=== PATIENT | female | born 1965 | race Caucasian/White ===

== ENCOUNTER → 2017-10-23 | Outpatient (CLI) | payer OTHER ==
--- NOTE | 2017-10-23 12:31 | MR ---
EXAMINATION TYPE: MR cervical spine wo con DATE OF EXAM: 10/23/2017 11:32 AM COMPARISON: NONE HISTORY: Cervicalgia / Radiculopathy Multiplanar MultiSpin echo imaging of the cervical spine was performed. Comparison: none C2-C3: No evidence for degenerative disc disease. No disc bulge/herniation or protrusion. No Canal stenosis. Foramina are patent bilaterally. C3-C4: No evidence for degenerative disc disease. No disc bulge/herniation or protrusion. No Canal stenosis. Foramina are patent bilaterally. C4-C5: Mild disc desiccation compatible with degenerative disc disease. Mild posterocentral disc bulg e. No herniation protrusion or central stenosis. Foramina are patent bilaterally. C5-C6: Moderate disc desiccation noted. Circumferential disc bulge greatest posteriorly. Effacement o f the ventral thecal sac without cord contact. There is grade 1 retrolisthesis of C5 on C6 measuring 2.3 mm. This is likely on the basis of degenerative change of the cervical apophyseal joints. Degener ative endplate marrow changes are noted. Ventral spondylosis is identified. Foramina are patent. C6-C7: No evidence for degenerative disc disease. No disc bulge/herniation or protrusion. No Canal stenosis. Foramina are patent bilaterally. C7-T1: No evidence for degenerative disc disease. No disc bulge/herniation or protrusion. No Canal stenosis. Foramina are patent bilaterally. Cervical segments are intact. There is normal alignment. Cervical spinal cord is of normal signal. Craniovertebral junction relationships are within normal limits. IMPRESSION: 1. Degenerative disc disease as discussed. 2. Disc bulging at C4-5 and C5-6 greatest at C5-6 as noted. 2. Grade 1 retrolisthesis of C5 on C6 .
== END | disposition home or self-care (01) ==
LOC: RADMRIMAIN 10:53
PROVIDERS: ATTEND Family Medicine
DX: M50.121 Cervical disc disorder at C4-C5 level with radiculopathy (principal); M43.12 Spondylolisthesis, cervical region
CPT/HCPCS: 72141

== ENCOUNTER → 2017-12-24 | Outpatient (CLI) | payer OTHER | END | disposition home or self-care (01) | LOC: RADFLMAIN 12:48 | PROVIDERS: ATTEND Physical Medicine & Rehabilitation | DX: Z53.9 Procedure and treatment not carried out, unspecified reason (principal) ==

== ENCOUNTER → 2018-05-31 | Outpatient (CLI) | payer OTHER ==
--- NOTE | 2018-05-31 16:15 | XR ---
EXAMINATION TYPE: XR finger LT DATE OF EXAM: 05/31/2018 COMPARISON: Left hand x-ray October 22, 2014. HISTORY: Pain first digit left hand. TECHNIQUE: 2 views of left first finger are acquired. FINDINGS: Seen best on frontal projection there is advanced joint space loss with peripheral osteophy melissa and adjacent soft tissue bony formation with progression from 2015 radiograph at base of first me tacarpal. Mild spurring and joint space loss first interphalangeal joint is redemonstrated. No acute fracture or dislocation is seen. IMPRESSION: As above.
--- NOTE | 2018-05-31 16:16 | XR ---
EXAMINATION TYPE: XR lumbar spine 2 or 3V DATE OF EXAM: 05/31/2018 CLINICAL HISTORY: Chronic increasing low back pain. TECHNIQUE: Frontal and lateral images of the lumbar spine are obtained. COMPARISON: None FINDINGS: There are 5 lumbar type vertebral bodies identified. The lumbar spine shows satisfactory alignment without evidence of acute fracture or dislocation. Vertebral body heights and disk space he ights are within normal limits. Mild anterior spurring from superior L3 endplate is present. Mild vas cular calcification overlying abdominal aorta is seen. IMPRESSION: As above.
== END | disposition home or self-care (01) ==
LOC: RADXRYALE 15:53
PROVIDERS: ATTEND Nurse Practitioner Family
DX: M77.8 Other enthesopathies, not elsewhere classified (principal); M25.742 Osteophyte, left hand
CPT/HCPCS: 72100

== ENCOUNTER → 2018-06-19 | Outpatient (CLI) | payer OTHER ==
--- NOTE | 2018-06-19 22:54 | CT ---
EXAMINATION TYPE: CT lumbar spine wo con DATE OF EXAM: 06/19/2018 COMPARISON: None HISTORY: 52-year-old female lumbar radiculitis, Lower back pain TECHNIQUE: Contiguous axial scanning of the lumbar spine without IV contrast. Coronal and sagittal re constructions performed. CT DLP: 1011.79 mGycm Automated exposure control for dose reduction was used. FINDINGS: There is mild right-sided pelviectasis and mild right-sided hydroureter. This should be correlated wi th any symptoms of renal colic. There is some irregular soft tissue thickening in the region of the cecum near the ileocecal valve, r efer to coronal image 10. Patient be further evaluated with colonoscopy. Vertebral body heights are preserved. Trace grade 1 retrolisthesis L2-L3. Mild bulging discs from L2 through L5 levels. No large focal disc herniation identified by CT. Facet arthropathy lower lumbar spine with bilateral L5 pars defects. No appreciable spinal canal stenosis. On the left, bulging discs result in mild narrowing of the neuroforamen at L2-L3, L3-L4, L4-L5. On the right, there is mild narrowing seen at L3-L4, L4-L5, and L5-S1. No high-grade foraminal compro mise identified. IMPRESSION: 1. MILD MULTILEVEL DEGENERATIVE DISC DISEASE. THERE IS GRADE 1 RETROLISTHESIS AT L2/L3 LIKELY ON A DE GENERATIVE BASIS. 2. BILATERAL L5 PARS DEFECTS. MILD BILATERAL NEURAL FORAMINAL NARROWING IN THE MID TO LOWER LUMBAR SP INE. NO HIGH-GRADE FORAMINAL COMPROMISE. 3. NO VERTEBRAL COMPRESSION COLLAPSE. 4. SOME IRREGULAR SOFT TISSUE THICKENING WITHIN THE CECUM NEAR THE ILEOCECAL VALVE. THIS MAY RELATE T O WALL REDUNDANCY. CORRELATE WITH COLONOSCOPY TO EXCLUDE UNDERLYING NEOPLASM. 5. MILD RIGHT-SIDED HYDROURETER AND PELVIECTASIS MAY BE TRANSIENT. CORRELATE FOR ANY RIGHT-SIDED WENDI L COLIC AND POSSIBILITY OF A DISTAL URETERAL OBSTRUCTION.
--- NOTE | 2018-06-19 22:58 | CT ---
EXAMINATION TYPE: CT pelvis w con DATE OF EXAM: 06/19/2018 COMPARISON: NONE HISTORY: 52-year-old female Lower back and LLQ pain TECHNIQUE: Contiguous axial scanning of the pelvis following administration of 100 ml Isovue 300 IV c ontrast. Delayed images through the bladder and coronal/sagittal reconstructions performed. CT DLP: 605.65 mGycm Automated exposure control for dose reduction was used. FINDINGS: Bladder urine distended. Mild right-sided pelviectasis and a mild right-sided hydroureter without any distal obstructing lesion identified. This may be transient. Bladder is urine distended. Uterus and ovaries are visualized. Prominent left-sided periuterine varic es and distended left gonadal vein. Some soft tissue thickening in the cecum near the level of the ileocecal valve, refer to coronal imag e 30 and recommendations made on the patient's lumbar spine CT. No abnormal fluid collection in the pelvis or pelvic lymphadenopathy. IMPRESSION: 1. LEFT-SIDED PARAUTERINE VARICES AND A DISTENDED LEFT GONADAL VEIN. NONSPECIFIC FINDINGS THAT CAN BE SEEN IN THE SETTING OF PELVIC CONGESTION SYNDROME. 2. IN REGARDS TO THE RIGHT KIDNEY AND CECUM, REFER TO CT LUMBAR SPINE REPORT. OF NOTE, NO DISTAL URET ERAL CALCULUS IS SEEN ON THE ON THIS EXAM. FINDINGS INVOLVING THE RIGHT KIDNEY AND URETER MAY BE RAMIREZ SIENT.
== END ==
LOC: RADCTMAIN 16:13
PROVIDERS: ATTEND Family Medicine
DX: M99.73 Connective tissue and disc stenosis of intervertebral foramina of lumbar region (principal); M43.16 Spondylolisthesis, lumbar region; M51.16 Intervertebral disc disorders with radiculopathy, lumbar region; I86.2 Pelvic varices
CPT/HCPCS: 72193; 72131; Q9967

== ENCOUNTER 2018-07-22 10:31 | Observation (INO) | payer OTHER ==
--- NOTE | 2018-07-22 11:14 | XR ---
EXAMINATION TYPE: XR chest 2V DATE OF EXAM: 07/22/2018 COMPARISON: NONE HISTORY: Chest pain and shortness of breath since this morning TECHNIQUE: Frontal and lateral views of the chest are obtained. FINDINGS: There is no focal air space opacity, pleural effusion, or pneumothorax seen. The cardiac silhouette size is within normal limits. The osseous structures are intact. IMPRESSION: No acute cardiopulmonary process.
[2018-07-22 11:20] LABS: Prothrombin Time 9.7 sec (9.0-12.0)
[2018-07-22 11:21] LABS: ALT 19 U/L (9-52); AST 21 U/L (14-36); Albumin 3.5 g/dL (3.5-5.0); Alkaline Phosphatase 56 U/L (38-126); Anion Gap 6 mmol/L; Blood Urea Nitrogen 17 mg/dL (7-17); Calcium 9.2 mg/dL (8.4-10.2); Carbon Dioxide 24 mmol/L (22-30); Chloride 111 mmol/L (98-107); Glucose 109 mg/dL (74-99); Magnesium 2.2 mg/dL (1.6-2.3); Potassium 4.4 mmol/L (3.5-5.1); Sodium 141 mmol/L (137-145); Total Bilirubin 0.8 mg/dL (0.2-1.3); Total Protein 6.8 g/dL (6.3-8.2)
[2018-07-22 11:26] LABS: Basophils # (A) 0.1 k/uL (0-0.2); Basophils % (A) 1 %; Creatine Kinase 31 U/L (30-135); Eosinophils # (A) 0.2 k/uL (0-0.7); Eosinophils % (A) 2 %; HCT 41.3 % (34.0-46.0); HGB 13.8 gm/dL (11.4-16.0); Lymphocytes # (A) 2.1 k/uL (1.0-4.8); Lymphocytes % (A) 19 %; MCH 30.8 pg (25.0-35.0); MCHC 33.4 g/dL (31.0-37.0); Mean Platelet Volume 6.5; Monocytes # (A) 0.6 k/uL (0-1.0); Monocytes % (A) 5 %; Neutrophils # (A) 7.9 k/uL (1.3-7.7); Neutrophils % (A) 72 %; Platelet Count 307 k/uL (150-450); RBC 4.49 m/uL (3.80-5.40); RDW 12.8 % (11.5-15.5); WBC 10.9 k/uL (3.8-10.6)
--- NOTE | 2018-07-22 11:29 | ED ---
General Adult HPI - General Chief complaint: Chest Pain Stated complaint: Chest Pain Source: patient, EMS Mode of arrival: EMS Limitations: no limitations - History of Present Illness Initial comments: Dictation was produced using [employer] dictation software. please excuse any grammatical, word or spelling errors. Chief Complaint: 82-year-old female past medical history of cancer, GERD, osteoporosis presents with chest tightness and pleuritic chest pain. History of Present Illness: She's been having symptoms since last night. She states her symptoms felt as though she was having tightness in her chest. Denies any relation to the neck or shoulders. No associated diaphoresis. Patient denies any history of cardiac disease. She does state that she does have some pleuritic chest symptoms to her bilateral lower chest. She states that her pain is worse with deep inspiration. Patient is a current smoker. Patient has any cough. Denies any constitutional symptoms. Denies any history of DVTs or PEs. Family history of thrombotic embolic disease. EMS performed 3 EKGs. There is concern of some ST elevations however they did not report any ST depressions or other reciprocal changes. The ROS documented in this emergency department record has been reviewed and confirmed by me. Those systems with pertinent positive or negative responses have been documented in the HPI. All other systems are other negative and/or noncontributory. - Related Data Home Medications Medication Instructions Recorded Confirmed Acetaminophen Tab [Tylenol Tab] 1,000 mg PO Q6HR PRN 07/22/18 07/22/18 Aspirin 324 mg PO DAILY PRN 07/22/18 07/22/18 Allergies Allergy/AdvReac Type Severity Reaction Status Date / Time No Known Allergies Allergy Verified 07/22/18 11:19 Review of Systems ROS Statement: Those systems with pertinent positive or pertinent negative responses have been documented in the HPI. ROS Other: All systems not noted in ROS Statement are negative. Past Medical History Past Medical History: Cancer, GERD/Reflux, Osteoarthritis (OA) Additional Past Medical History / Comment(s): HX SKIN CANCER, BACK PAIN, STATES IRREGULAR HEART BEAT., STATES CURRENT COUGH AND CHEST CONGESTION- WILL BE FOLLOWING UP WITH HER DR Sultana AND DR CARRILLO'S OFFICE ., STATES CT SCAN DONE FOR BACK PAIN WHICH SHOWED "SWOLLEN INTESTINES". History of Any Multi-Drug Resistant Organisms: None Reported Past Surgical History: Tubal Ligation Additional Past Surgical History / Comment(s): CYST ON HAND, NOSE FX SURGERY., COLONOSCOPY. Past Anesthesia/Blood Transfusion Reactions: Motion Sickness, Postoperative Nausea & Vomiting (PONV) Past Psychological History: Depression Smoking Status: Current every day smoker Past Alcohol Use History: Occasional Past Drug Use History: Marijuana - Past Family History Mother Family Medical History: No Reported History General Exam - General Exam Comments Initial Comments: PHYSICAL EXAM: General Impression: Alert and oriented x3, not in acute distress HEENT: Normocephalic atraumatic, extra-ocular movements intact, pupils equal and reactive to light bilaterally, mucous membranes moist. Cardiovascular: Heart regular rate and rhythm, S1&S2 audible, no murmurs, rubs or gallops Chest: Lungs clear to auscultation bilaterally, no rhonchi, no wheeze, no rales Abdomen: Bowel sounds present, abdomen soft, non-tender, non-distended, no organomegaly Musculoskeletal: Pulses present and equal in all extremities, no peripheral edema Motor: Power 5/5 bilaterally, no focal deficits noted Neurological: CN II-XII grossly intact, no focal motor or sensory deficits noted Skin: Intact with no visualized rashes Psych: Normal affect and mood Limitations: no limitations Course Vital Signs 07/22/18 07/22/18 10:33 10:51 Temperature 98.4 F Pulse Rate 76 Respiratory 18 18 Rate Blood Pressure 115/79 O2 Sat by Pulse 99 Oximetry Medical Decision Making - Medical Decision Making ED course: 52-year-old female with multiple comorbidities presents with atypical chest pain with typical features. Patient appears well at this time. As upon arrival are within acceptable limits. His examination is benign.Return evaluation obtained. Leukocytosis of 10.9 likely secondary to stress. Coag panel unremarkable. Metabolic panel is unremarkable. Cardiac enzymes are negative. Chest x-ray shows no acute processes. Patient be admitted to observation for so troponins. Patient reports having had a stress test however spend several years. Patient has any history of DVTs. Denies any lower extremity symptoms. - Lab Data Result diagrams: 07/22/18 10:46 07/22/18 10:46 Lab Results 07/22/18 07/22/18 07/22/18 Range/Units 10:46 10:46 10:46 WBC 10.9 H (3.8-10.6) k/uL RBC 4.49 (3.80-5.40) m/uL Hgb 13.8 (11.4-16.0) gm/dL Hct 41.3 (34.0-46.0) % MCV 92.0 (80.0-100.0) fL MCH 30.8 (25.0-35.0) pg MCHC 33.4 (31.0-37.0) g/dL RDW 12.8 (11.5-15.5) % Plt Count 307 (150-450) k/uL Neutrophils % 72 % Lymphocytes % 19 % Monocytes % 5 % Eosinophils % 2 % Basophils % 1 % Neutrophils # 7.9 H (1.3-7.7) k/uL Lymphocytes # 2.1 (1.0-4.8) k/uL Monocytes # 0.6 (0-1.0) k/uL Eosinophils # 0.2 (0-0.7) k/uL Basophils # 0.1 (0-0.2) k/uL PT (9.0-12.0) sec INR (<1.2) APTT (22.0-30.0) sec Sodium 141 (137-145) mmol/L Potassium 4.4 (3.5-5.1) mmol/L Chloride 111 H (98-107) mmol/L Carbon Dioxide 24 (22-30) mmol/L Anion Gap 6 mmol/L BUN 17 (7-17) mg/dL Creatinine 0.61 (0.52-1.04) mg/dL Est GFR (CKD-EPI)AfAm >90 (>60 ml/min/1.73 sqM) Est GFR (CKD-EPI)NonAf >90 (>60 ml/min/1.73 sqM) Glucose 109 H (74-99) mg/dL Calcium 9.2 (8.4-10.2) mg/dL Magnesium 2.2 (1.6-2.3) mg/dL Total Bilirubin 0.8 (0.2-1.3) mg/dL AST 21 (14-36) U/L ALT 19 (9-52) U/L Alkaline Phosphatase 56 (38-126) U/L Total Creatine Kinase 31 (30-135) U/L CK-MB (CK-2) 0.3 (0.0-2.4) ng/mL CK-MB (CK-2) Rel Index 1.0 Troponin I <0.012 (0.000-0.034) ng/mL Total Protein 6.8 (6.3-8.2) g/dL Albumin 3.5 (3.5-5.0) g/dL 07/22/18 Range/Units 10:46 WBC (3.8-10.6) k/uL RBC (3.80-5.40) m/uL Hgb (11.4-16.0) gm/dL Hct (34.0-46.0) % MCV (80.0-100.0) fL MCH (25.0-35.0) pg MCHC (31.0-37.0) g/dL RDW (11.5-15.5) % Plt Count (150-450) k/uL Neutrophils % % Lymphocytes % % Monocytes % % Eosinophils % % Basophils % % Neutrophils # (1.3-7.7) k/uL Lymphocytes # (1.0-4.8) k/uL Monocytes # (0-1.0) k/uL Eosinophils # (0-0.7) k/uL Basophils # (0-0.2) k/uL PT 9.7 (9.0-12.0) sec INR 1.0 (<1.2) APTT 23.0 (22.0-30.0) sec Sodium (137-145) mmol/L Potassium (3.5-5.1) mmol/L Chloride (98-107) mmol/L Carbon Dioxide (22-30) mmol/L Anion Gap mmol/L BUN (7-17) mg/dL Creatinine (0.52-1.04) mg/dL Est GFR (CKD-EPI)AfAm (>60 ml/min/1.73 sqM) Est GFR (CKD-EPI)NonAf (>60 ml/min/1.73 sqM) Glucose (74-99) mg/dL Calcium (8.4-10.2) mg/dL Magnesium (1.6-2.3) mg/dL Total Bilirubin (0.2-1.3) mg/dL AST (14-36) U/L ALT (9-52) U/L Alkaline Phosphatase (38-126) U/L Total Creatine Kinase (30-135) U/L CK-MB (CK-2) (0.0-2.4) ng/mL CK-MB (CK-2) Rel Index Troponin I (0.000-0.034) ng/mL Total Protein (6.3-8.2) g/dL Albumin (3.5-5.0) g/dL Disposition Clinical Impression: Chest pain Disposition: ADMITTED IP TO THIS [facility] Condition: Good Referrals: Estela Storm DO [Primary Care Provider] - 1-2 days Decision Time: 12:52
[2018-07-22 11:37] LABS: Creatine Kinase MB 0.3 ng/mL (0.0-2.4); Troponin I <0.012 ng/mL (0.000-0.034)
[2018-07-22] MEDS ORDERED: ASPIRIN 81 MG PO STA (12:52)
[2018-07-22] MEDS ORDERED: NITROGLYCERIN SL TABS 0.4 MG TAB SUBLINGUAL PRN (12:52)
--- NOTE | 2018-07-22 17:09 | P.HPIM ---
History of Present Illness 52-year-old pleasant female chronic smoker came in with complaints of her chest tightness and dull pain severe started yesterday while she was eating has to stop eating constant which is mild and now mild improvement with the sublingual nitroglycerin denied any radiation of chest pain patient chest pain does get worse with deep breathing doesn't have pneumonia on the chest x-ray d-dimer will be obtained to denied any cough denied any diaphoresis nausea lightheadedness, shortness of breath possible history of premature coronary artery disease in father patient has seen by PCP who sent her here because of mild ST elevations which are insignificant. Troponins are negative we'll obtain a d-dimer. Patient was comparing of palpitations as well Review of Systems REVIEW OF SYSTEMS: CONSTITUTIONAL: No fever, no malaise, no fatigue. HEENT: No recent visual problems or hearing problems. Denied any sore throat. CARDIOVASCULAR: No orthopnea, PND, no syncope. PULMONARY: No shortness of breath, no cough, no hemoptysis. GASTROINTESTINAL: No diarrhea, no nausea, no vomiting, no abdominal pain. Normoactive bowel sounds. NEUROLOGICAL: No headaches, no weakness, no numbness. HEMATOLOGICAL: Denies any bleeding or petechiae. GENITOURINARY: Denies any burning micturition, frequency, or urgency. MUSCULOSKELETAL/RHEUMATOLOGICAL: Denies any joint pain, swelling, or any muscle pain. ENDOCRINE: Denies any polyuria or polydipsia. The rest of the 14-point review of systems is negative. Past Medical History Past Medical History: Cancer, GERD/Reflux, Osteoarthritis (OA) Additional Past Medical History / Comment(s): HX SKIN CANCER, BACK PAIN, STATES IRREGULAR HEART BEAT., STATES CURRENT COUGH AND CHEST CONGESTION- WILL BE FOLLOWING UP WITH HER DR Sultana AND DR CARRILLO'S OFFICE ., STATES CT SCAN DONE FOR BACK PAIN WHICH SHOWED "SWOLLEN INTESTINES" to have a colonosocpy.pt stated"i passed out about a month ago they were leaning on it being associated with migraines" History of Any Multi-Drug Resistant Organisms: None Reported Past Surgical History: Tubal Ligation Additional Past Surgical History / Comment(s): CYST ON lt HAND, NOSE FX SURGERY. , COLONOSCOPY/benign polys removed. Past Anesthesia/Blood Transfusion Reactions: Motion Sickness, Postoperative Nausea & Vomiting (PONV) Additional Past Anesthesia/Blood Transfusion Reaction / Comment(s): never has had a blood transfusion Smoking Status: Current every day smoker - Past Family History Mother Family Medical History: Diabetes Mellitus, Osteoarthritis (OA) Additional Family Medical History / Comment(s): irreg heart beat ,osteoporosis, Father Family Medical History: Coronary Artery Disease (CAD) Additional Family Medical History / Comment(s): heart issues Medications and Allergies Home Medications Medication Instructions Recorded Confirmed Type Acetaminophen Tab [Tylenol Tab] 1,000 mg PO Q6HR PRN 07/22/18 07/22/18 History Aspirin 324 mg PO DAILY PRN 07/22/18 07/22/18 History Allergies Allergy/AdvReac Type Severity Reaction Status Date / Time No Known Allergies Allergy Verified 07/22/18 11:19 Physical Exam Vitals: Vital Signs Temp Pulse Pulse Resp BP BP Pulse Ox 07/22/18 15:20 97.8 F 63 18 106/71 99 07/22/18 15:00 69 18 108/74 97 07/22/18 14:40 69 18 108/74 98 07/22/18 14:20 66 18 111/78 97 07/22/18 13:34 76 18 118/79 96 07/22/18 13:32 72 13 118/79 98 07/22/18 10:51 18 07/22/18 10:33 98.4 F 76 18 115/79 99 Intake and Output 07/22/18 07/22/18 07/22/18 06:59 14:59 22:59 Other: Weight 63.957 kg 63 kg PHYSICAL EXAMINATION: GENERAL: The patient is alert and oriented x3, not in any acute distress. Well developed, well nourished. HEENT: Pupils are round and equally reacting to light. EOMI. No scleral icterus. No conjunctival pallor. Normocephalic, atraumatic. No pharyngeal erythema. No thyromegaly. CARDIOVASCULAR: S1 and S2 present. No murmurs, rubs, or gallops. PULMONARY: Chest is clear to auscultation, no wheezing or crackles. ABDOMEN: Soft, nontender, nondistended, normoactive bowel sounds. No palpable organomegaly. MUSCULOSKELETAL: No joint swelling or deformity. EXTREMITIES: No cyanosis, clubbing, or pedal edema. NEUROLOGICAL: Gross neurological examination did not reveal any focal deficits. SKIN: No rashes. Results CBC & Chem 7: 07/22/18 10:46 07/22/18 10:46 Labs: Abnormal Lab Results - Last 24 Hours (Table) 07/22/18 07/22/18 Range/Units 10:46 10:46 WBC 10.9 H (3.8-10.6) k/uL Neutrophils # 7.9 H (1.3-7.7) k/uL Chloride 111 H (98-107) mmol/L Glucose 109 H (74-99) mg/dL Assessment and Plan Plan: -Chest pain: Mostly atypical in nature because of the pleuritic a competent of chest pain will obtain a d-dimer if it's positive will obtain a CT to rule out pulmonary embolism. The other possibility being gastroesophageal reflux disease patient will be started on Protonix cardiology will evaluate the patient rule out: Acute coronary syndromes. -Nicotine use: Counseling was provided patient used to smoke 2 packs per day now smoking about one pack per day trying to cut it down -History of gastroesophageal reflux disease -Depression/panic disorder
[2018-07-22 17:24] LABS: Creatine Kinase 31 U/L (30-135)
[2018-07-22 17:37] LABS: Creatine Kinase MB 0.3 ng/mL (0.0-2.4); Troponin I <0.012 ng/mL (0.000-0.034)
[2018-07-22] MEDS: PANTOPRAZOLE 40 MG/10 ML VIAL IVP SCH (18:54)
[2018-07-22 20:11] VITALS: RESP 16
[2018-07-22 23:39] LABS: Creatine Kinase 31 U/L (30-135)
[2018-07-22 23:53] LABS: Creatine Kinase MB 0.3 ng/mL (0.0-2.4); Troponin I <0.012 ng/mL (0.000-0.034)
[2018-07-23 01:33] LABS: Cholesterol 172 mg/dL (<200); HDL Cholesterol 45 mg/dL (40-60); LDL Cholesterol,Calculated 115 mg/dL (0-99); Triglycerides 60 mg/dL (<150)
[2018-07-23 08:12] VITALS: PULSE 64
--- NOTE | 2018-07-23 08:55 | P.CRDCN ---
<Vamshi Brock - Last Filed: 07/23/18 08:55> History of Present Illness History of present illness: 48-year-old female presenting with palpitations which she describes as an irregular rhythm lasting 15-20 minutes associated with chest discomfort of a pleuritic nature. Comfortable at this time Recurrent episodes of palpitations of an irregular nature lasting 15-20 minutes for several years. 3-5 episodes per year No documentation of her rhythm. Thinks she is having a panic attack Current smoker Occasional alcohol use Normal cardiac enzymes and normal d-dimer History of basal cell cancer Plan 2-D echo Doppler study, TSH outpatient follow-up with Dr. Giralod for evaluation of arrhythmias Past Medical History Past Medical History: Cancer, GERD/Reflux, Osteoarthritis (OA) Additional Past Medical History / Comment(s): HX SKIN CANCER, BACK PAIN, STATES IRREGULAR HEART BEAT., STATES CURRENT COUGH AND CHEST CONGESTION- WILL BE FOLLOWING UP WITH HER DR Sultana AND DR CARRILLO'S OFFICE ., STATES CT SCAN DONE FOR BACK PAIN WHICH SHOWED "SWOLLEN INTESTINES" to have a colonosocpy.pt stated"i passed out about a month ago they were leaning on it being associated with migraines" History of Any Multi-Drug Resistant Organisms: None Reported Past Surgical History: Tubal Ligation Additional Past Surgical History / Comment(s): CYST ON lt HAND, NOSE FX SURGERY. , COLONOSCOPY/benign polys removed. Past Anesthesia/Blood Transfusion Reactions: Motion Sickness, Postoperative Nausea & Vomiting (PONV) Additional Past Anesthesia/Blood Transfusion Reaction / Comment(s): never has had a blood transfusion Smoking Status: Current every day smoker - Past Family History Mother Family Medical History: Diabetes Mellitus, Osteoarthritis (OA) Additional Family Medical History / Comment(s): irreg heart beat ,osteoporosis, Father Family Medical History: Coronary Artery Disease (CAD) Additional Family Medical History / Comment(s): heart issues Medications and Allergies Home Medications Medication Instructions Recorded Confirmed Type Acetaminophen Tab [Tylenol Tab] 1,000 mg PO Q6HR PRN 07/22/18 07/22/18 History Aspirin 324 mg PO DAILY PRN 07/22/18 07/22/18 History Allergies Allergy/AdvReac Type Severity Reaction Status Date / Time No Known Allergies Allergy Verified 07/22/18 11:19 Physical Exam Vitals: Vital Signs Temp Pulse Pulse Resp BP BP Pulse Ox 07/23/18 08:00 97.7 F 64 16 107/72 98 07/23/18 03:50 97.5 F L 72 16 107/70 97 07/23/18 03:22 16 07/23/18 00:00 16 07/22/18 23:17 97.6 F 80 16 103/68 98 07/22/18 20:00 98.3 F 73 16 94/61 98 07/22/18 19:31 97 07/22/18 17:00 18 07/22/18 15:20 97.8 F 63 18 106/71 99 07/22/18 15:00 69 18 108/74 97 07/22/18 14:40 69 18 108/74 98 07/22/18 14:20 66 18 111/78 97 07/22/18 13:34 76 18 118/79 96 07/22/18 13:32 72 13 118/79 98 07/22/18 10:51 18 07/22/18 10:33 98.4 F 76 18 115/79 99 Intake and Output 07/22/18 07/23/18 07/23/18 22:59 06:59 14:59 Intake Total 480 Balance 480 Intake: Oral 480 Other: Voiding Method Toilet Toilet # Voids 2 2 Weight 63 kg Results 07/22/18 10:46 07/22/18 10:46 Cardiac Enzymes 07/22/18 07/22/18 07/22/18 Range/Units 10:46 10:46 16:29 AST 21 (14-36) U/L CK-MB (CK-2) 0.3 0.3 (0.0-2.4) ng/mL Troponin I <0.012 <0.012 (0.000-0.034) ng/mL 07/22/18 Range/Units 22:25 AST (14-36) U/L CK-MB (CK-2) 0.3 (0.0-2.4) ng/mL Troponin I <0.012 (0.000-0.034) ng/mL Coagulation 07/22/18 Range/Units 10:46 PT 9.7 (9.0-12.0) sec APTT 23.0 (22.0-30.0) sec Lipids 07/22/18 Range/Units 10:46 Triglycerides 60 (<150) mg/dL Cholesterol 172 (<200) mg/dL HDL Cholesterol 45 (40-60) mg/dL CBC 07/22/18 Range/Units 10:46 WBC 10.9 H (3.8-10.6) k/uL RBC 4.49 (3.80-5.40) m/uL Hgb 13.8 (11.4-16.0) gm/dL Hct 41.3 (34.0-46.0) % Plt Count 307 (150-450) k/uL Comprehensive Metabolic Panel 07/22/18 Range/Units 10:46 Sodium 141 (137-145) mmol/L Potassium 4.4 (3.5-5.1) mmol/L Chloride 111 H (98-107) mmol/L Carbon Dioxide 24 (22-30) mmol/L BUN 17 (7-17) mg/dL Creatinine 0.61 (0.52-1.04) mg/dL Glucose 109 H (74-99) mg/dL Calcium 9.2 (8.4-10.2) mg/dL AST 21 (14-36) U/L ALT 19 (9-52) U/L Alkaline Phosphatase 56 (38-126) U/L Total Protein 6.8 (6.3-8.2) g/dL Albumin 3.5 (3.5-5.0) g/dL Current Medications Generic Name Dose Route Start Last Admin Trade Name Freq PRN Reason Stop Dose Admin Aspirin 325 mg 07/23/18 09:00 Aspirin PO DAILY CHARLI Nitroglycerin 0.4 mg 07/22/18 12:52 Nitrostat SUBLINGUAL Q5M PRN Chest Pain Pantoprazole Sodium 40 mg 07/22/18 16:45 07/22/18 18:54 Protonix IVP 40 mg DAILY CHARLI Administration Intake and Output 07/22/18 07/23/18 07/23/18 22:59 06:59 14:59 Intake Total 480 Balance 480 Intake: Oral 480 Other: Voiding Method Toilet Toilet # Voids 2 2 Weight 63 kg 07/22/18 10:46 07/22/18 10:46 <Amber Ayala - Last Filed: 07/23/18 09:39> History of Present Illness History of present illness: Mrs. Rao is a pleasant 52-year-old female past medical history significant for basal cell skin cancer, gastroesophageal reflux disease, anxiety and chronic nicotine and marijuana use. She denies history of coronary artery disease, hypertension, dyslipidemia or diabetes mellitus. We have been asked to see her in consultation for chest pain. She states Sunday night while sitting down eating dinner she started feeling her heart racing in an irregular fashion lasting about 15-20 minutes. Subsequently thereafter she started having pleuritic chest pain that was worse with deep breathing. She woke up yesterday morning with ongoing chest discomfort with each breath. She denies shortness of breath, nausea, vomiting, diaphoresis or any further palpitations. She states she has experienced these symptoms of palpitations approximately 3-5 times per year and attributes these to panic attacks. Telemetry tracings have been unremarkable for arrhythmia. EKG sinus with no acute abnormalities. Chest xray negative for an acute cardiopulmonary process. Laboratory data reviewed, WBC 10.9, hemoglobin 13.8, platelets 307, d-dimer 0.47 , sodium 141, potassium 4.4, magnesium 2.2, creatinine 0.61, cardiac enzymes negative 3, LDL 115, HDL 45. She takes no daily medications. At the time of my exam: CONSTITUTIONAL: Denies fever. Denies chills. EYES: Denies blurred vision. Denies vision changes. Denies eye pain. EARS, NOSE, MOUTH & THROAT: Denies headache. Denies sore throat. Denies ear pain. CARDIOVASCULAR: Denies chest pain. Denies shortness of breath. Denies orthopnea. Denies PND. Denies palpitations. RESPIRATORY: Denies cough. GASTROINTESTINAL: Denies abdominal pain. Denies diarrhea. Denies constipation. Denies nausea. Denies vomiting. MUSCULOSKELETAL: Denies myalgias. INTEGUMENTARY: Denies pruitis. Denies rash. NEUROLOGIC: Denies numbness. Denies tingling. Denies weakness. PSYCHIATRIC: Denies anxiety. Denies depression. ENDOCRINE: Denies fatigue. Denies weight change. Denies polydipsia. Denies polyurina. GENITOURINARY: Denies burning, hematuria or urgency with micturation. HEMATOLOGIC: Denies history of anemia. Denies bleeding. Blood pressure 107/70 heart rate 72 afebrile maintaining oxygen saturation on room air GENERAL: This is a 52-year-old female in no apparent distress at the time of my examination. HEENT: Head is atraumatic, normocephalic. Pupils are equal, round. Sclerae anicteric. Conjunctivae are clear. Mucous membranes of the mouth are moist. Neck is supple. There is no jugular venous distention. No carotid bruit is heard. LUNGS: Clear to auscultation no wheezes, rales or rhonchi. No chest wall tenderness is noted on palpation or with deep breathing. HEART: Regular rate and rhythm without murmurs, rubs or gallops. S1 and S2 heard. ABDOMEN: Soft, nontender. Bowel sounds are heard. No organomegaly noted. EXTREMITIES: No evidence of peripheral edema and no calf tenderness noted. VASCULAR: Radial and dorsalis pedis pulses palpated, no evidence of clubbing. NEUROLOGIC: Patient is awake, alert and oriented x3. ASSESSMENT Palpitations, intermittent Pleuritic chest pain, resolved. Chronic nicotine dependence Chronic marijuana abuse Dyslipidemia, LDL 115. PLAN Obtain 2-D echocardiogram and Doppler study to assess cardiac structure and function. Check TSH with reflex to free T4 if abnormal. 30-day event monitor to be set up through the office. Nicotine and marijuana cessation recommended. Lifestyle modifications recommended in the form of diet and exercise to decrease LDL cholesterol. Follow up appointment to be made with Dr. Brock in 4-6 weeks. Thank you kindly for this consultation. Nurse Practitioner note has been reviewed, I agree with a documented findings and plan of care. Patient was seen and examined. Physical Exam Vitals: Vital Signs Temp Pulse Pulse Resp BP BP Pulse Ox 07/23/18 08:00 97.7 F 64 16 107/72 98 07/23/18 03:50 97.5 F L 72 16 107/70 97 07/23/18 03:22 16 07/23/18 00:00 16 07/22/18 23:17 97.6 F 80 16 103/68 98 07/22/18 20:00 98.3 F 73 16 94/61 98 07/22/18 19:31 97 07/22/18 17:00 18 07/22/18 15:20 97.8 F 63 18 106/71 99 07/22/18 15:00 69 18 108/74 97 07/22/18 14:40 69 18 108/74 98 07/22/18 14:20 66 18 111/78 97 07/22/18 13:34 76 18 118/79 96 07/22/18 13:32 72 13 118/79 98 07/22/18 10:51 18 07/22/18 10:33 98.4 F 76 18 115/79 99 Intake and Output 07/22/18 07/23/18 07/23/18 22:59 06:59 14:59 Intake Total 480 Balance 480 Intake: Oral 480 Other: Voiding Method Toilet Toilet # Voids 2 2 Weight 63 kg Results 07/22/18 10:46 07/22/18 10:46 Cardiac Enzymes 07/22/18 07/22/18 07/22/18 Range/Units 10:46 10:46 16:29 AST 21 (14-36) U/L CK-MB (CK-2) 0.3 0.3 (0.0-2.4) ng/mL Troponin I <0.012 <0.012 (0.000-0.034) ng/mL 07/22/18 Range/Units 22:25 AST (14-36) U/L CK-MB (CK-2) 0.3 (0.0-2.4) ng/mL Troponin I <0.012 (0.000-0.034) ng/mL Coagulation 07/22/18 Range/Units 10:46 PT 9.7 (9.0-12.0) sec APTT 23.0 (22.0-30.0) sec Lipids 07/22/18 Range/Units 10:46 Triglycerides 60 (<150) mg/dL Cholesterol 172 (<200) mg/dL HDL Cholesterol 45 (40-60) mg/dL CBC 07/22/18 Range/Units 10:46 WBC 10.9 H (3.8-10.6) k/uL RBC 4.49 (3.80-5.40) m/uL Hgb 13.8 (11.4-16.0) gm/dL Hct 41.3 (34.0-46.0) % Plt Count 307 (150-450) k/uL Comprehensive Metabolic Panel 07/22/18 Range/Units 10:46 Sodium 141 (137-145) mmol/L Potassium 4.4 (3.5-5.1) mmol/L Chloride 111 H (98-107) mmol/L Carbon Dioxide 24 (22-30) mmol/L BUN 17 (7-17) mg/dL Creatinine 0.61 (0.52-1.04) mg/dL Glucose 109 H (74-99) mg/dL Calcium 9.2 (8.4-10.2) mg/dL AST 21 (14-36) U/L ALT 19 (9-52) U/L Alkaline Phosphatase 56 (38-126) U/L Total Protein 6.8 (6.3-8.2) g/dL Albumin 3.5 (3.5-5.0) g/dL Current Medications Generic Name Dose Route Start Last Admin Trade Name Freq PRN Reason Stop Dose Admin Aspirin 325 mg 07/23/18 09:00 Aspirin PO DAILY CHARLI Nitroglycerin 0.4 mg 07/22/18 12:52 Nitrostat SUBLINGUAL Q5M PRN Chest Pain Pantoprazole Sodium 40 mg 07/22/18 16:45 07/22/18 18:54 Protonix IVP 40 mg DAILY CHARLI Administration Intake and Output 07/22/18 07/23/18 07/23/18 22:59 06:59 14:59 Intake Total 480 Balance 480 Intake: Oral 480 Other: Voiding Method Toilet Toilet # Voids 2 2 Weight 63 kg 07/22/18 10:46 07/22/18 10:46
[2018-07-23] MEDS ORDERED: ASPIRIN 325 MG TAB PO SCH (09:00)
[2018-07-23] MEDS: PANTOPRAZOLE 40 MG/10 ML VIAL IVP SCH (11:30)
[2018-07-23 12:33] VITALS: BP 110/72; TEMP 98.3
[2018-07-23 13:01] LABS: T4, Free (Free Thyroxine) 1.29 ng/dL (0.78-2.19)
--- NOTE | 2018-07-23 14:05 | ECHOF ---
Referral Reason:cp MEASUREMENTS -------- HEIGHT: 165.1 cm WEIGHT: 61.2 kg BP: 107/72 IVSd: 1.0 cm (0.6 - 1.1) LVIDd: 4.3 cm (3.9 - 5.3) LVPWd: 1.1 cm (0.6 - 1.1) IVSs: 1.1 cm LVIDs: 3.4 cm LVPWs: 1.2 cm LA Diam: 2.7 cm (2.7 - 3.8) RVIDd: 2.4 cm (< 3.3) Ao Diam: 3.0 cm (2.0 - 3.7) LA Diam: 2.5 cm (2.7 - 3.8) AV Cusp: 1.9 cm (1.5 - 2.6) EPSS: 0.3 cm MV E Tyler: 0.66 m/s MV DecT: 235 ms MV A Tyler: 0.63 m/s MV E/A Ratio: 1.05 RAP: 5.00 mmHg RVSP: 21.56 mmHg MV EF SLOPE: 106.61 mm/s (70 - 150) MV EXCURSION: 18.87 mm (> 18.000) FINDINGS -------- Sinus rhythm. This was a technically adequate study. LV size, wall thickness and systolic function are normal, with an EF greater than 55%. The left casper tricular size is normal. The right ventricle is normal in size. The left atrial size is normal. The right atrial size is normal. There is mild aortic valve sclerosis. There is no evidence of aortic regurgitation. Mild mitral annular calcification present. Mild mitral regurgitation is present. Mild tricuspid regurgitation present. There is no evidence of pulmonary hypertension. The right v entricular systolic pressure, as measured by Doppler, is 21.56mmHg. There is no pulmonic regurgitation present. The aortic root size is normal. There is no pericardial effusion. CONCLUSIONS -------- 1. LV size, wall thickness and systolic function are normal, with an EF greater than 55%. 2. The left ventricular size is normal. 3. The right ventricle is normal in size. 4. The left atrial size is normal. 5. The right atrial size is normal. 6. There is mild aortic valve sclerosis. 7. Mild mitral annular calcification present. 8. Mild mitral regurgitation is present. 9. Mild tricuspid regurgitation present. 10. There is no evidence of pulmonary hypertension. 11. The right ventricular systolic pressure, as measured by Doppler, is 21.56mmHg. 12. There is no pulmonic regurgitation present. 13. The aortic root size is normal. 14. There is no pericardial effusion. GAS ENGINE MECHANIC: Jessica Mathew RDCS
--- NOTE | 2018-07-23 15:47 | P.DS ---
Providers Date of admission: 07/22/18 12:52 Attending physician: Grecia Mahan Consults: 07/22/18 17:12 Consult Physician Routine Consulting Provider: Vamshi Brock Consult Reason/Comments: chest pain Do you want consulting provider notified?: Yes Primary care physician: Estela Storm [facility] Course: Patient is admitted with chest pain underwent stress test which is negative patient chest pain is secondary to gastroesophageal reflux disease will be discharged on Prozac for 14 days. Use which is mildly low T4 is within normal limits repeat TSH in about a month patient may have sick euthyroid syndrome under don't believe patient is have hypothyroidism PHYSICAL EXAMINATION: GENERAL: The patient is alert and oriented x3, not in any acute distress. Well developed, well nourished. HEENT: Pupils are round and equally reacting to light. EOMI. No scleral icterus. No conjunctival pallor. Normocephalic, atraumatic. No pharyngeal erythema. No thyromegaly. CARDIOVASCULAR: S1 and S2 present. No murmurs, rubs, or gallops. PULMONARY: Chest is clear to auscultation, no wheezing or crackles. ABDOMEN: Soft, nontender, nondistended, normoactive bowel sounds. No palpable organomegaly. MUSCULOSKELETAL: No joint swelling or deformity. EXTREMITIES: No cyanosis, clubbing, or pedal edema. NEUROLOGICAL: Gross neurological examination did not reveal any focal deficits. SKIN: No rashes. Her chronic medical problems hospitalization course please refer to my HPI Patient Condition at Discharge: Good Plan - Discharge Summary Discharge Rx Participant: Yes New Discharge Prescriptions: New Omeprazole [PriLOSEC] 40 mg PO AC-BRKFST #14 capsule. No Action Aspirin 324 mg PO DAILY PRN PRN Reason: Chest Pain Acetaminophen Tab [Tylenol Tab] 1,000 mg PO Q6HR PRN PRN Reason: Pain Discharge Medication List Acetaminophen Tab [Tylenol Tab] 1,000 mg PO Q6HR PRN 07/22/18 [History] Aspirin 324 mg PO DAILY PRN 07/22/18 [History] Omeprazole [PriLOSEC] 40 mg PO AC-BRKFST #14 capsule. 07/23/18 [Rx] Follow up Appointment(s)/Referral(s): Vamshi Brock MD [STAFF PHYSICIAN] - 09/04/18 3:15 pm (30-day event monitor will be mailed to your home from the office with instructions for application. Appointment with Dr. Brock after complete on 09/04 at 3:15) Estela Storm DO [Primary Care Provider] - 3 Days Patient Instructions/Handouts: Chest Pain (ED) Discharge Disposition: HOME SELF-CARE
== END 2018-07-23 12:50 | disposition home or self-care (01) ==
LOC: EC 10:31 → 1SOBS 12:52
PROVIDERS: ADMIT Internal Medicine; ATTEND Internal Medicine
DX: K21.9 Gastro-esophageal reflux disease without esophagitis (principal); M19.90 Unspecified osteoarthritis, unspecified site; Z85.828 Personal history of other malignant neoplasm of skin; R05 Cough; R09.89 Other specified symptoms and signs involving the circulatory and respiratory systems; F32.9 Major depressive disorder, single episode, unspecified; Z83.3 Family history of diabetes mellitus; F17.210 Nicotine dependence, cigarettes, uncomplicated; Z86.718 Personal history of other venous thrombosis and embolism; Z82.49 Family history of ischemic heart disease and other diseases of the circulatory system; E78.5 Hyperlipidemia, unspecified
CPT/HCPCS: 99285 ×2; 96374; 36415; 93005; 93306; 85379; 84439; 80061; 80053; 84443; 82550; 82553; 83735; 84484; 85025; 85610; 85730; 71046; G0378 ×2; C9113

== ENCOUNTER 2018-08-01 07:19 | Day surgery (SDC) | payer OTHER ==
[2018-07-16 10:45] VITALS: BMI 23.3
[~2018-08-01 07:19] MED LIST: LACTATED RINGERS 1,000 ML IV SCH
[2018-08-01 07:55] VITALS: TEMP 97.6
[2018-08-01] MEDS ORDERED: NA PHOS,M-B/NA PHOS,DI-BA 133 ML ENEMA RECTAL ONE (08:01)
[2018-08-01] MEDS ORDERED: LACTATED RINGERS 1,000 ML IV ONE (08:11)
[2018-08-01] MEDS ORDERED: LIDOCAINE 1% 20 ML VIAL (10MG/ML) FOR IV START INTRADERMA ONE (08:11)
[2018-08-01] MEDS ORDERED: PROPOFOL 10 MG/ML 20 ML VIAL IV ONE (09:08)
[2018-08-01 09:38] VITALS: RESP 16
--- NOTE | 2018-08-01 09:43 | P.PCN ---
Date of Procedure: 08/01/18 Procedure(s) Performed: procedure: Total colonoscopy. Preoperative diagnosis: Screening for neoplasia. Postoperative diagnosis: Sigmoid diverticulosis with no evidence of acute diverticulitis, strictures, polyps or cancer. Preparation: HalfLytely prep. Sedation: Was provided by anesthesia. Brief clinical history: The patient is a 52-year-old female who is scheduled for this evaluation for screening for neoplasia. She has nonspecific abdominal symptoms. In 2012, she had a colonoscopy and she believes she had couple polyps removed. There is family history of polyps in her mother and she may have history of colon cancer in a grandparent. Procedure: With the patient on her left lateral decubitus position and after informed consent and adequate sedation, the perianal area was inspected and it did not show any fissures or fistulas. There were no masses felt on digital rectal examination. The Olympus CFQ 160L video colonoscope was then inserted in the rectum in the usual fashion and advanced to the cecum. There were several diverticular orifices seen scattered in the sigmoid but I saw no evidence of acute diverticulitis or strictures. No polyps or tumors were seen or any other abnormalities. The mucosa appeared healthy. I retroflexed the endoscope in the rectum before the endoscope was withdrawn. The patient tolerated the procedure well. Plan: The patient was reassured. Discussed dietary measures. She will follow- up with you as planned and I recommended repeat exam in 5 years.
[2018-08-01 10:12] VITALS: BP 112/80; PULSE 75
== END 2018-08-01 10:27 | disposition home or self-care (01) ==
LOC: ORWHC2ENDO 07:19
DX: Z12.11 Encounter for screening for malignant neoplasm of colon (principal); K57.30 Diverticulosis of large intestine without perforation or abscess without bleeding; Z86.010 Personal history of colon polyps; Z83.71 Family history of colonic polyps; K21.9 Gastro-esophageal reflux disease without esophagitis; M19.90 Unspecified osteoarthritis, unspecified site; Z85.828 Personal history of other malignant neoplasm of skin; Z79.899 Other long term (current) drug therapy; F17.210 Nicotine dependence, cigarettes, uncomplicated
CPT/HCPCS: 81025; J2704; G0105

== ENCOUNTER → 2018-08-02 | Outpatient (CLI) | payer OTHER ==
--- NOTE | 2018-08-03 16:23 | ECHOS ---
STRESS ECHOCARDIOGRAM INDICATIONS: Chest pain. Abnormal EKG. MEDICATIONS: Protonix. BASELINE HEART RATE: 81 BASELINE BLOOD PRESSURE: 91/49 MAXIMUM HEART RATE: 156 MAXIMUM BLOOD PRESSURE: 153/60 85% MPHR: 144 100% MPHR: 169 METS: 8.7 MAXIMUM STAGE REACHED: 3 TOTAL EXERCISE TIME: 7:15 CLINICAL INFORMATION: Baseline heart rate 81 beats per minute. Baseline blood pressure 91/49 mmHg. Baseline 12-lead ECG shows normal sinus rhythm with early repolarization abnormality. Patient exercised on Lorne protocol for 7 minutes 15 seconds, achieving a peak heart rate of 156 beats per minute. Normal blood pressure response to exercise. There was no ECG evidence for ischemia. No arrhythmias were noted. Baseline 2D echo images showed normal LV size and systolic function with no segmental wall motion abnormalities. At peak exercise, there was excellent augmentation of overall LV contractility without development of any wall motion abnormalities. At recovery, regional and global LV systolic function remained normal. IMPRESSION: Average exercise capacity. No ECG or echocardiographic evidence for ischemia. MMODL / IJN: [id number] /
== END | disposition home or self-care (01) ==
LOC: RADNMMAIN 09:44
PROVIDERS: ATTEND Nurse Practitioner Family
DX: R94.31 Abnormal electrocardiogram [ECG] [EKG] (principal); Z72.0 Tobacco use
CPT/HCPCS: 93351

== ENCOUNTER → 2019-05-29 | Outpatient (CLI) | payer OTHER ==
--- NOTE | 2019-05-29 16:03 | US ---
EXAMINATION TYPE: US abdomen complete DATE OF EXAM: 05/29/2019 COMPARISON: NONE CLINICAL HISTORY: R10.13 Epigastric Pain R12 Heartburn. Epigastric pain, nausea and heartburn EXAM MEASUREMENTS: Liver Length: 16.2 cm Gallbladder Wall: 0.2 cm CBD: 0.4 cm Spleen: 8.8 cm Right Kidney: 11.8 x 4.1 x 4.4 cm Left Kidney: 11.3 x 6.3 x 5.1 cm Pancreas: visualized portions appear wnl Liver: wnl Gallbladder: no evidence of stones Evidence for sonographic Springer's sign: no CBD: wnl Spleen: wnl Right Kidney: no evidence of hydronephrosis Left Kidney: no evidence of hydronephrosis Upper IVC: wnl Abd Aorta: wnl IMPRESSION: 1. Normal abdomen ultrasound
== END ==
LOC: RADUSWWP 09:45
PROVIDERS: ATTEND Family Medicine
DX: R10.13 Epigastric pain (principal); R12 Heartburn
CPT/HCPCS: 76700

== ENCOUNTER 2019-06-05 07:30 | Day surgery (SDC) | payer OTHER ==
[2019-06-02 13:00] VITALS: BMI 25.9
[~2019-06-05 07:30] MED LIST changes: +LIDOCAINE 1% 20 ML VIAL (10MG/ML) FOR IV START INTRADERMA PRN
[2019-06-05] MEDS ORDERED: ONDANSETRON 4 MG/2 ML VIAL IVP ONE (08:08)
[2019-06-05 08:13] VITALS: RESP 18; TEMP 97.9
[2019-06-05] MEDS ORDERED: PROPOFOL 10 MG/ML 20 ML VIAL IV ONE (08:48)
--- NOTE | 2019-06-05 09:22 | P.PCN ---
Date of Procedure: 06/05/19 Description of Procedure: BRIEF HISTORY: Patient is a 53-year-old, pleasant, female patient who presents for upper endoscopy for evaluation of epigastric abdominal pain and reflux. The patient has a known history of reflux disease for which she was initially started on Protonix therapy. She tried to wean herself off however reported symptoms worsen. Currently she is taking the medicine was some improvement of symptoms, however continues to have some epigastric abdominal pain and nausea. PROCEDURE PERFORMED: Esophagogastroduodenoscopy with biopsy. PREOPERATIVE DIAGNOSIS: Epigastric abdominal pain, GERD, nausea. ESTIMATED BLOOD LOSS: Minimal. IV sedation per anesthesia. PROCEDURE: After informed consent was obtained, the patient was brought into the endoscopy unit. IV sedation was administered by Anesthesia under continuous monitoring. Initially the Olympus GIF-190 video endoscope was inserted into the mouth. Esophagus intubated without any difficulty. It was gradually advanced into the stomach and duodenum and carefully examined. The bulb and the second part of the duodenum appeared normal except for some mild scattered erythema suggestive of mild duodenitis with biopsies taken. The scope at this time was withdrawn to the stomach, adequately insufflated with air, and upon careful examination, mucosa of the antrum, body, cardia and the fundus appeared normal, except for some mild punctate erythema in the antrum and body suggestive of mild gastritis with biopsies of antrum and body taken. The scope was then withdrawn into the esophagus. The GE junction was located at 40 cm from the incisors and biopsy. The esophagus appeared normal. There were no erosions or ulcerations seen and the patient tolerated the procedure well. IMPRESSION: 1. Mild gastritis antrum and body, biopsied. 2. Mild duodenitis, biopsied. 3. GE junction biopsies. RECOMMENDATIONS: The findings of this examination were discussed with the patient and her friend. Okay to resume diet. Would continue Protonix 40 mg daily with consideration for increasing dose twice daily. Await pathology from biopsies.
[2019-06-05 09:33] VITALS: BP 111/80; PULSE 65
== END 2019-06-05 09:49 | disposition home or self-care (01) ==
LOC: ORWHC2ENDO 07:30
PROVIDERS: ATTEND Internal Medicine
DX: K29.80 Duodenitis without bleeding (principal); K29.50 Unspecified chronic gastritis without bleeding; K20.0 Eosinophilic esophagitis; K21.9 Gastro-esophageal reflux disease without esophagitis; Z98.51 Tubal ligation status; F17.210 Nicotine dependence, cigarettes, uncomplicated; Z85.828 Personal history of other malignant neoplasm of skin; M19.90 Unspecified osteoarthritis, unspecified site; Z79.899 Other long term (current) drug therapy
CPT/HCPCS: 88305; 43239; J2405; J2704

== ENCOUNTER → 2019-11-18 | Outpatient (CLI) | payer OTHER ==
[2019-11-18 15:51] LABS: Chol/HDL Ratio 4.48
== END | disposition home or self-care (01) ==
LOC: LABWHC1 08:18
PROVIDERS: ATTEND Physician Assistant
DX: R00.2 Palpitations (principal); E78.5 Hyperlipidemia, unspecified
CPT/HCPCS: 36415; 80061; 84443

== ENCOUNTER → 2020-03-03 | Outpatient (CLI) | payer OTHER ==
--- NOTE | 2020-03-03 12:02 | XR ---
EXAMINATION TYPE: XR wrist limited LT DATE OF EXAM: 03/03/2020 CLINICAL HISTORY: pain TECHNIQUE: Frontal, lateral and oblique images of the left wrist are obtained. COMPARISON: None. FINDINGS: There is no acute fracture/dislocation evident. Severe degenerative narrowing first carpal metacarpal joint space with radial subluxation of the first metatarsal. The overlying soft tissue ap pears unremarkable. IMPRESSION: Advanced degenerative changes noted. ICD 10 NO FRACTURE, INITIAL EVALUATION
== END | disposition home or self-care (01) ==
LOC: RADXRMAIN 11:08
PROVIDERS: ATTEND Nurse Practitioner Family
DX: M19.042 Primary osteoarthritis, left hand (principal)

== ENCOUNTER → 2020-09-10 | Outpatient (CLI) | payer OTHER ==
--- NOTE | 2020-09-10 21:58 | MR ---
EXAMINATION TYPE: MR cervical spine wo con DATE OF EXAM: 09/10/2020 COMPARISON: 10/23/2017 HISTORY: Radiculopathy, cervical region Multiplanar multiecho imaging of the cervical spine was performed without contrast. There is some straightening of the vertebra. There is disc space narrowing at C5-6 and C6-7. There is a few millimeter anterior subluxation of C4 in relation to C5. Cervical spinal cord shows no edema. There is no spinal stenosis. Spinal canal measures 8 mm at C5-6 which is the narrowest point. The bra instem is intact. There is mild spurring of the endplates and disc bulging posteriorly at C5-6 and C6 -7. There is 2 mm retrolisthesis of C5-6. There is no evidence of cervical paraspinal mass. IMPRESSION: There is some mild posterior subluxation deformity of the C5 vertebral body in relation to C4 and C6. This appears not significantly different than old exam. No evidence of any significant spinal stenos is. Small posterior disc herniations at C5-6 and C6-7 are increased compared to old exam.
== END | disposition home or self-care (01) ==
LOC: RADMRIMAIN 17:54
PROVIDERS: ATTEND Nurse Practitioner Family
DX: M50.122 Cervical disc disorder at C5-C6 level with radiculopathy (principal); M43.8X2 Other specified deforming dorsopathies, cervical region
CPT/HCPCS: 72141

== ENCOUNTER → 2020-10-26 | Outpatient (CLI) | payer OTHER ==
--- NOTE | 2020-10-26 12:32 | CT ---
EXAMINATION TYPE: CT abdomen pelvis wo con DATE OF EXAM: 10/26/2020 COMPARISON: CT pelvis 06/19/2018 INDICATION: Low back pain, Hematuria DLP: 694 mGycm, Automated exposure control for dose reduction was used. CONTRAST: 0 mL of Isovue 300. Study performed without Oral Contrast TECHNIQUE: Axial images were obtained from above the diaphragm to the pubic rami in the axial plane a t 5 mm thick sections. Reconstructed images are reviewed on the computer in the coronal plane. FINDINGS: Limited CT sections are obtained the lung bases. The lung bases are clear. CT ABDOMEN: Liver: Normal Spleen: Normal Pancreas: Normal Adrenal glands: The adrenal glands are normal. Gallbladder: Normal Kidneys: No masses are evident. No hydronephrosis is present. No cysts are present. No renal stone s are evident. Aorta: Vascular calcification is within the aorta. Inferior vena cava: Normal. CT PELVIS: Loops of bowel within the abdomen and pelvis are normal. Studies without oral contrast limiting b owel evaluation. Scattered diverticuli are within the sigmoid colon. Appendix: Normal as visualized. Urinary bladder: Normal. Genitourinary structures: Uterus and adnexa are normal. Vascular prominence is somewhat diminished fr om comparison. Osseous structures: No suspicious lytic or sclerotic lesions. IMPRESSIONS: 1. No suspicious abnormality to account for hematuria on the noncontrast CT abdomen pelvis
== END | disposition home or self-care (01) ==
LOC: RADCTMAIN 09:16
PROVIDERS: ATTEND Family Medicine
DX: M54.5 Low back pain (principal)
CPT/HCPCS: 74176

== ENCOUNTER → 2022-01-10 | Outpatient (CLI) | payer OTHER ==
--- NOTE | 2022-01-12 10:46 | MM ---
Reason for exam: screening (asymptomatic). Last mammogram was performed 5 years and 7 months ago. History: Patient is postmenopausal and history of other cancer. Took hormonal contraceptives for 7 years beginning at age 15. Physical Findings: A clinical breast exam by your physician is recommended on an annual basis and results should be correlated with mammographic findings. MG Screening Mammo w CAD Bilateral CC and MLO view(s) were taken. Prior study comparison: June 07, 2016, bilateral MG screening mammo w CAD. May 20, 2015, right breast MG work up mamm w CAD RT. There are scattered fibroglandular densities. No significant changes when compared with prior studies. ASSESSMENT: Benign, BI-RAD 2 RECOMMENDATION: Routine screening mammogram of both breasts in 1 year.
== END | disposition home or self-care (01) ==
LOC: RADMAMWWP 13:37
PROVIDERS: ATTEND Obstetrics & Gynecology
DX: Z12.31 Encounter for screening mammogram for malignant neoplasm of breast (principal)
CPT/HCPCS: 77067

== ENCOUNTER → 2022-06-05 | Outpatient (CLI) | payer OTHER ==
[2022-06-05 15:33] LABS: Basophils # (A) 0.11 X 10*3/uL (0.00-0.10); Basophils % (A) 0.9 %; Eosinophils # (A) 0.19 X 10*3/uL (0.04-0.35); Eosinophils % (A) 1.6 %; HCT 42.6 % (37.2-46.3); Immature Grans, Automated 0.3 %; Lymphocytes # (A) 3.34 X 10*3/uL (0.90-5.00); Lymphocytes % (A) 27.8 %; MCH 30.7 pg (27.0-32.0); MCHC 32.9 g/dL (32.0-37.0); MCV 93.4 fL (80.0-97.0); Mean Platelet Volume 9.7 fL (9.5-12.2); Monocytes # (A) 0.49 X 10*3/uL (0.20-1.00); Monocytes % (A) 4.1 %; NRBC Per 100 WBC 0 /100 WBCS (0.0-0.0); Neutrophils # (A) 7.84 X 10*3/uL (1.80-7.70); Neutrophils % (A) 65.3 %; Platelet Count 349 X 10*3/uL (140-440); RBC 4.56 X 10*6/uL (4.10-5.20); RDW 13.8 % (11.5-14.5)
[2022-06-05 15:59] LABS: Erythrocyte Sedimentation Rate 68 mm/Hr (0-30)
[2022-06-05 17:39] LABS: Rheumatoid Factor, Qnt <10 IU/mL (0-15); Uric Acid 3.9 mg/dL (2.9-7.7)
[2022-06-06 11:07] LABS: HLA B27 POSITIVE
== END | disposition home or self-care (01) ==
LOC: LABWHC1 08:54
PROVIDERS: ATTEND Orthopaedic Surgery Hand Surgery
DX: M79.643 Pain in unspecified hand (principal); M06.8A Other specified rheumatoid arthritis, other specified site
CPT/HCPCS: 36415; 84550; 85025; 85652; 86038; 86140; 86431; 86812

== ENCOUNTER → 2022-08-03 | Outpatient (CLI) | payer OTHER ==
--- NOTE | 2022-08-03 17:10 | BD ---
EXAMINATION TYPE: Axial Bone Density DATE OF EXAM: 08/03/2022 COMPARISON: NONE CLINICAL HISTORY: 56 years year old Female. ICD-10 CODE: Z13.820 SCREENING FOR OSTEOPOROSIS Height: 5 FT 5 1/2 IN Weight: 162 FRAX RISK QUESTIONS: Alcohol (3 or more units per day): NO Family History (Parent hip fracture): NO Glucocorticoids (More than 3mos): NO (Ex: prednisone, prednisolone, methylprednisolone, dexamethasone, and hydrocortisone). History of Fracture in Adulthood: YES Secondary Osteoporosis: 1. Type 1 Diabetes: NO 2. Hyperthyroidism: NO 3. Menopause before 45: NO 4. Malnutrition: NO 5. Chronic liver disease: NO Rheumatoid Arthritis: NO Current Tobacco Use: YES RISK FACTORS HISTORY OF: Surgery to Spine/Hip(right/left)/Wrist (right/left): LEFT WRIST When: 4-5 YEARS AGG Family History of Osteoporosis: YES Active: YES Diet low in dairy products/other sources of calcium: NO Postmenopausal woman: YES Take estrogen and/or progesterone medications: NO Lost more than 2 inches in height since high school: NO Frequent falls: NO Poor Health: FAIR Hyperparathyroidism: NO Adrenal Insufficiency: NO MEDICATIONS: Additional Medications: MELOXICAM,PROTONIX, XANAX NEEDED Additional History: EXAM MEASUREMENTS: Bone mineral densitometry was performed using the [employer] System. Bone mineral density as measured about the Lumbar spine is: ----- L1-L4(G/cm2): 1.175 T Score Values are as follows: ----- L1: -0.4 ----- L2: -0.3 ----- L3: 0.2 ----- L4: 0.1 ----- L1-L4: 0.0 Bone mineral density has: DECREASED -6.8 % since study of: 2015 Bone mineral density about the R hip (g/cm2): 0.997 Bone mineral density about the L hip (g/cm2): 1.000 T Score values are as follows: -----R Neck: -0.3 -----L Neck: -0.3 -----R Total: -0.2 -----L Total: 0.1 Bone mineral density has: DECREASED -8.8 % since study of: 2015 FRAX%s: The graph provided illustrates a 9.7 % chance for a major osteoporotic fx and a 0.3 % chance for the hips probability for fx in 10 years time. IMPRESSION: Normal (Values between +1 and -1 indicate normal bone mass). Consider repeating this study in 5 year s or sooner if there is some new clinical indication. NOTE: T-SCORE=SD OF THE YOUNG ADULT MEAN.
== END | disposition home or self-care (01) ==
LOC: RADBDWWP 09:56
PROVIDERS: ATTEND Family Medicine
DX: Z13.820 Encounter for screening for osteoporosis (principal)
CPT/HCPCS: 77080

== ENCOUNTER → 2022-12-22 | Outpatient (CLI) | payer OTHER | END | disposition home or self-care (01) | LOC: LABWHC1 11:28 | PROVIDERS: ATTEND Family Medicine | DX: E87.5 Hyperkalemia (principal) | CPT/HCPCS: 36415; 84132 ==

== ENCOUNTER 2023-05-27 17:12 | Emergency (ER) | payer OTHER ==
[2023-05-27 17:25] VITALS: RESP 18
[2023-05-27] MEDS ORDERED: LIDOCAINE 1% INJ 10MG/ML (20 ML MDV) SQ ONE (17:35)
--- NOTE | 2023-05-27 18:10 | ED ---
Head Injury HPI - General Chief complaint: Head Injury Stated complaint: Bump on Head Time Seen by Provider: 05/27/23 17:31 Source: patient, family Mode of arrival: wheelchair - History of Present Illness Initial comments: Patient is a 57-year-old female presenting to the emergency room for evaluation of laceration and hematoma to her right scalp which obtained while m owing her lawn on a riding lawnmower and she had a low pain branch. She denies any loss of consciousness, she is not on blood thinners. She reports some pain at the site of hematoma but denies a generalized headache, dizziness, nausea, vomiting, blurred vision, double vision, or focal neurological deficits. She denies any injury to any other location or any other complaints or concerns. She reports that her tetanus vaccination is up-to-date. Past medical history as listed below reviewed. - Related Data Home Medications Medication Instructions Recorded Confirmed Acetaminophen [Tylenol Extra 1,000 mg PO QID PRN 06/02/19 06/05/19 Strength] Pantoprazole Sodium [Protonix] 40 mg PO DAILY 06/02/19 06/05/19 Allergies/Adverse reactions: Allergies Allergy/AdvReac Type Severity Reaction Status Date / Time No Known Allergies Allergy Verified 05/27/23 17:25 Review of Systems ROS Statement: Those systems with pertinent positive or pertinent negative responses have been documented in the HPI. ROS Other: All systems not noted in ROS Statement are negative. Past Medical History Past Medical History: Cancer, GERD/Reflux, Osteoarthritis (OA) Additional Past Medical History / Comment(s): HX SKIN CANCER, BACK PAIN, STATES IRREGULAR HEART BEAT., STATES CURRENT COUGH AND CHEST CONGESTION- WILL BE FOLLOWING UP WITH HER DR Sultana AND DR CARRILLO'S OFFICE ., STATES CT SCAN DONE FOR BACK PAIN WHICH SHOWED "SWOLLEN INTESTINES" to have a colonosocpy.pt stated"i passed out about a month ago they were leaning on it being associated with migraines" History of Any Multi-Drug Resistant Organisms: None Reported Past Surgical History: Tubal Ligation Additional Past Surgical History / Comment(s): CYST ON lt HAND, NOSE FX SURGE RY., COLONOSCOPY/benign polys removed. Past Anesthesia/Blood Transfusion Reactions: Motion Sickness, Postoperative Nausea & Vomiting (PONV) Additional Past Anesthesia/Blood Transfusion Reaction / Comment(s): never has had a blood transfusion Past Psychological History: Depression, Panic Disorder Smoking Status: Current every day smoker Past Alcohol Use History: Occasional Past Drug Use History: Marijuana - Past Family History Mother Family Medical History: No Reported History Additional Family Medical History / Comment(s): irreg heart beat ,osteoporosis, Father Family Medical History: Coronary Artery Disease (CAD) Additional Family Medical History / Comment(s): Heart issues. General Exam Limitations: no limitations General appearance: alert, in no apparent distress Head exam: Present: normocephalic Expanded Head exam: Present: laceration (6 cm right mid scalp), hematoma (Distal to laceration approximately 2 cm in diameter) Eye exam: Present: normal appearance, PERRL, EOMI. Absent: scleral icterus, conjunctival injection, periorbital swelling ENT exam: Present: normal exam, mucous membranes moist Neck exam: Present: normal inspection, full ROM Respiratory exam: Absent: respiratory distress, accessory muscle use Cardiovascular Exam: Present: regular rate Extremities exam: Present: normal inspection, full ROM. Absent: pedal edema, joint swelling Back exam: Present: normal inspection, full ROM Neurological exam: Present: alert, oriented X3, CN II-XII intact Psychiatric exam: Present: normal affect, normal mood Skin exam: Present: other (Laceration and hematoma as above) Course Vital Signs 05/27/23 05/27/23 17:19 18:40 Temperature 98.7 F 98.3 F Pulse Rate 74 78 Respiratory 18 18 Rate Blood Pressure 137/88 127/86 O2 Sat by Pulse 99 97 Oximetry Procedures - Laceration Laceration #1 Indication: laceration Site: scalp (Right mid) Size (cm): 6 Description: linear Depth: simple, single layer Anesthetic Used: lidocaine 1% Anesthesia Technique: local infiltration Pre-repair: wound explored, irrigated extensively, deep structures intact Type of Sutures: other ([place]) Number of Sutures: 11 Patient Tolerated Procedure: well, no complications Medical Decision Making - Medical Decision Making Was pt. sent in by a medical professional or institution (, PA, FOOD SAFETY DIRECTOR, urgent care, hospital, or [facility]...) When possible be specific @ -No Did you speak to anyone other than the patient for history (EMS, parent, family, police, friend...)? What history was obtained from this source @ -No Did you review nursing and triage notes (agree or disagree)? Why? @ -I reviewed and agree with nursing and triage notes Were old charts reviewed (outside hosp., previous admission, EMS record, old EKG, old radiological studies, urgent care reports/EKG's, [facility] records)? Report findings @ -No old charts were reviewed Differential Diagnosis (chest pain, altered mental status, abdominal pain women, abdominal pain men, vaginal bleeding, weakness, fever, dyspnea, syncope, headache, dizziness, GI bleed, back pain, seizure, CVA, palpatations, mental health, musculoskeletal)? @ -not applicable EKG interpreted by me (3pts min.). @ -None done X-rays interpreted by me (1pt min.). @ -None done CT interpreted by me (1pt min.). @ -CT brain without contrast: No skull depression, fracture, intracranial hemorrhage, mass or shift. U/S interpreted by me (1pt. min.). @ -None done What testing was considered but not performed or refused? (CT, X-rays, U/S, labs)? Why? @ -None What meds were considered but not given or refused? Why? @ -Analgesics offered and declined. Did you discuss the management of the patient with other professionals (harshad hernandez i.e. , PA, FOOD SAFETY DIRECTOR, lab, RT, psych nurse, administrator social welfare, financial coordinator, teacher, asset protection officer, case planner)? Give summary @ -No Was smoking cessation discussed for >3mins.? @ -No Was critical care preformed (if so, how long)? @ -No Were there social determinants of health that impacted care today? How? (Homelessness, low income, unemployed, alcoholism, drug addiction, transportation, low edu. Level, literacy, decrease access to med. care, penitentiary, rehab)? @ -No Was there de-escalation of care discussed even if they declined (Discuss DNR or withdrawal of care, Hospice)? DNR status @ -No What co-morbidities impacted this encounter? (DM, HTN, Smoking, COPD, CAD, Cancer, CVA, ARF, Chemo, Hep., AIDS, mental health diagnosis, sleep apnea, morbid obesity)? @ -None Was patient admitted / discharged? Hospital course, mention meds given and route, prescriptions, significant lab abnormalities, going to OR and other pertinent info. @ -57-year-old female presenting the emergency room with laceration to head from a tree limb while riding a riding lawnmower mowing the lawn earlier today. Hematoma noted distal to the laceration consequently will obtain CT of the brain to. Denies any analgesic need. Reports tetanus is up-to-date. No indication for studies. CT of the brain negative for acute process including skull deformity fracture or intracranial bleed. Laceration closure tolerated well with chi placed. Wound care discussed. No indication for antibiotic therapy. Questions and concerns answered. Return parameters including when to return for staple removal discussed. Will discharge home in stable condition advising use of [id number] Tylenol or Motrin as needed for headache vomiting status post head injury and chi intact to laceration of the scalp advising return to the emergency room for staple removal in 7-10 days and follow-up with primary care provider as needed. Undiagnosed new problem with uncertain prognosis? @ -No Drug Therapy requiring intensive monitoring for toxicity (Heparin, Nitro, Insulin, Cardizem)? @ -No Were any procedures done? @ -Yes, laceration closure see procedure for details. Diagnosis/symptom? @ -Head injury without skull fracture Acute, or Chronic, or Acute on Chronic? @ -Acute Uncomplicated (without systemic symptoms) or Complicated (systemic symptoms)? @ -Uncomplicated Side effects of treatment? @ -No Exacerbation, Progression, or Severe Exacerbation? @ -No Poses a threat to life or bodily function? How? (Chest pain, [place], [place], pneumonia, PE, COPD, DKA, ARF, appy, cholecystitis, CVA, Diverticulitis, Homicidal, Suicidal, threat to staff... and all critical care pts) @ -No Diagnosis/symptom? @ -Laceration Acute, or Chronic, or Acute on Chronic? @ -Acute Uncomplicated (without systemic symptoms) or Complicated (systemic symptoms)? @ -Uncomplicated Side effects of treatment? @ -none Exacerbation, Progression, or Severe Exacerbation] @ -no Poses a threat to life or bodily function? @ -no Case discussed with Dr. Ann. Disposition Clinical Impression: Head injury without skull fracture, Laceration Disposition: HOME SELF-CARE Condition: Stable Instructions (If sedation given, give patient instructions): Care For Your Stitches (ED), Laceration (ED), Concussion (ED) Additional Instructions: Please keep wound clean and dry. Monitor for signs and symptoms of infection and seek medical attention as appropriate if symptoms occur. Please return to the emergency department for staple removal in 7-10 days. Please return to the Emergency Department if symptoms worsen or any other concerns. Is patient prescribed a controlled substance at d/c from ED?: No Referrals: Estela Storm DO [Primary Care Provider] - 1-2 days Time of Disposition: 18:36
--- NOTE | 2023-05-27 18:31 | CT ---
EXAMINATION TYPE: CT brain wo con CT DLP: 1234.3 mGycm, Automated exposure control for dose reduction was used. DATE OF EXAM: 05/27/2023 6:24 PM COMPARISON: None. CLINICAL INDICATION:Female, 57 years old with history of trauma, lac to top of head from tree branch. TECHNIQUE: Brain: Axial CT images of the brain were obtained with coronal and sagittal reformats created and rev iewed. Contrast used: None. Oral contrast used: None. FINDINGS: Brain: Extra-axial spaces: No abnormal extra-axial fluid collections. Ventricular system: Within normal limits Cerebral parenchyma: No acute intraparenchymal hemorrhage or mass effect. The sow-white junction is well differentiated. Cerebellum: Unremarkable. Mass effect: No evidence of midline shift. Intracranial vasculature: unremarkable Soft tissues: Right scalp laceration. No evidence of fracture. No radiopaque foreign body. Calvarium/osseous structures: No depressed skull fracture. Paranasal sinuses and mastoid air cells: Mild scattered paranasal sinus disease. Visualized orbits: Orbital contents are intact. IMPRESSION: 1. No acute intracranial process. 2. Right scalp laceration without evidence of radiopaque foreign body
[2023-05-27 18:42] VITALS: BP 127/86; PULSE 78; TEMP 98.3
== END 2023-05-27 18:52 | disposition home or self-care (01) ==
LOC: EC 17:12
DX: S01.01XA Laceration without foreign body of scalp, initial encounter (principal); M19.90 Unspecified osteoarthritis, unspecified site; K21.9 Gastro-esophageal reflux disease without esophagitis; F17.200 Nicotine dependence, unspecified, uncomplicated; F12.90 Cannabis use, unspecified, uncomplicated; Z79.1 Long term (current) use of non-steroidal anti-inflammatories (NSAID); Z86.59 Personal history of other mental and behavioral disorders; Z79.899 Other long term (current) drug therapy; X58.XXXA Exposure to other specified factors, initial encounter; Y93.I9 Activity, other involving external motion
CPT/HCPCS: 70450; 99283; 12002; J2001